=== PATIENT | male | born 1990 | race Two or more races ===

== ENCOUNTER 2021-04-26 14:41 | Observation (INO) | payer OTHER ==
[~2021-04-26] VITALS: Ht 172.7 cm; Wt 73.1 kg
[2021-04-26] MEDS ORDERED: diphenhydrAMINE 50 MG/ML VIAL IVP ONE (16:15)
[2021-04-26] MEDS ORDERED: KETOROLAC 15 MG/ML VIAL. IVP ONE (16:15)
[2021-04-26] MEDS ORDERED: PROCHLORPERAZINE 10 MG/2 ML VIAL. IV ONE (16:15)
[2021-04-26] MEDS ORDERED: IV NORMAL SALINE 1000ML BAG 1,000 ML IV ONE (16:15)
--- NOTE | 2021-04-26 16:16 | PHYS DOC ---
Past Medical History Past Surgical History: No Surgical History Adult General Chief Complaint Chief Complaint: EYE PROBLEMS HPI HPI Patient is a 30 year old male presenting to the emergency department for evaluation of multiple symptoms including headaches and vision loss. Patient re portedly had a chemical splash in his left eye on March 18 and has been following with ophthalmology where his initial vision was 20/25 in his left eye. He was initially seen on March 28. Patient says that he has been getting severe headaches and when he gets a headache his vision gets worse in his left eye but then when his headache goes away his vision gets better. Patient was in the ophthalmology clinic today and being seen by Dr. Oscar Magana and his eye exam was very unremarkable. The tray server felt that this was very unlikely to be an eye problem itself but prescribed Pred forte to see if the steroid would improve his vision. Dr. Magana sent him to the emergency depar tment as his visual acuity was 20/200 in his left eye and feels that there may be another process going on such as optic neuritis or a stroke and told him to come here to get an MRI and see a neurologist. Patient has no history of headaches or migraine disorders. He is in no acute distress with normal vital signs. Review of Systems Review of Systems Constitutional: Denies fever or chills [] Eyes: + change in visual acuity. No redness, or eye pain [] HENT: Denies nasal congestion or sore throat [] Respiratory: Denies cough or shortness of breath [] Cardiovascular: No additional information not addressed in HPI [] GI: Denies abdominal pain, nausea, vomiting, bloody stools or diarrhea [] : Denies dysuria or hematuria [] Musculoskeletal: Denies back pain or joint pain [] Integument: Denies rash or skin lesions [] Neurologic: + headache. No focal weakness or sensory changes [] All other systems were reviewed and found to be within normal limits, except as documented in this note. Current Medications Current Medications Current Medications Medications (Trade) Dose Ordered Sig/Gila Start Time Stop Time Status Last Admin Dose Admin Diphenhydramine HCl (Benadryl) 50 mg 1X ONCE 04/26/21 16:15 04/26/21 16:16 DC 04/26/21 16:58 50 MG Ketorolac Tromethamine (Toradol 15mg Vial) 15 mg 1X ONCE 04/26/21 16:15 04/26/21 16:16 DC 04/26/21 16:58 15 MG Morphine Sulfate (Morphine Sulfate) 4 mg PRN Q2HR PRN 04/26/21 17:00 04/27/21 16:59 Ondansetron HCl (Zofran) 4 mg PRN Q8HRS PRN 04/26/21 17:00 04/27/21 16:59 Prochlorperazine Edisylate (Compazine) 10 mg 1X ONCE 04/26/21 16:15 04/26/21 16:16 DC 04/26/21 16:58 10 MG Sodium Chloride 1,000 ml @ 1,000 mls/hr 1X ONCE 04/26/21 16:15 04/26/21 17:14 DC 04/26/21 16:56 1,000 MLS/HR Sumatriptan Succinate (Imitrex) 50 mg PRN Q12HR PRN 04/26/21 17:00 Allergies Allergies Allergies Coded Allergies Type Severity Reaction Last Updated Verified No Known Drug Allergies 04/26/21 No Physical Exam Physical Exam Constitutional: Well developed, well nourished, no acute distress, non-toxic appearance. [] HENT: Normocephalic, atraumatic, bilateral external ears normal, oropharynx moist, no oral exudates, nose normal. [] Eyes: PERRLA, EOMI, conjunctiva normal, no discharge. [] Neck: Normal range of motion, no tenderness, supple, no stridor. [] Cardiovascular:Heart rate regular rhythm, no murmur [] Lungs & Thorax: Bilateral breath sounds clear to auscultation [] Abdomen: Bowel sounds normal, soft, no tenderness, no masses, no pulsatile masses. [] Skin: Warm, dry, no erythema, no rash. [] Back: No tenderness, no CVA tenderness. [] Extremities: No tenderness, no cyanosis, no clubbing, ROM intact, no edema. [] Neurologic: Alert and oriented X 3, normal motor function, normal sensory function, no focal deficits noted. [] Psychologic: Affect normal, judgement normal, mood normal. [] Current Patient Data Vital Signs Vital Signs Date Time Temp Pulse Resp B/P (MAP) Pulse Ox O2 Delivery O2 Flow Rate FiO2 04/26/21 17:06 90 18 134/66 (88) 96 Room Air 04/26/21 16:02 98.2 98.2 Lab Values Laboratory Tests Test 04/26/21 16:14 White Blood Count 12.1 x10^3/uL (4.0-11.0) H Red Blood Count 4.83 x10^6/uL (4.30-5.70) Hemoglobin 14.4 g/dL (13.0-17.5) Hematocrit 42.6 % (39.0-53.0) Mean Corpuscular Volume 88 fL (79-100) Mean Corpuscular Hemoglobin 30 pg (25-35) Mean Corpuscular Hemoglobin Concent 34 g/dL (31-37) Red Cell Distribution Width 13.4 % (11.5-14.5) Platelet Count 176 x10^3/uL (140-400) Neutrophils (%) (Auto) 73 % (31-73) Lymphocytes (%) (Auto) 17 % (24-48) L Monocytes (%) (Auto) 7 % (0-9) Eosinophils (%) (Auto) 2 % (0-3) Basophils (%) (Auto) 0 % (0-3) Neutrophils # (Auto) 8.8 x10^3/uL (1.8-7.7) H Lymphocytes # (Auto) 2.0 x10^3/uL (1.0-4.8) Monocytes # (Auto) 0.9 x10^3/uL (0.0-1.1) Eosinophils # (Auto) 0.3 x10^3/uL (0.0-0.7) Basophils # (Auto) 0.1 x10^3/uL (0.0-0.2) Sodium Level 139 mmol/L (136-145) Potassium Level 4.2 mmol/L (3.5-5.1) Chloride Level 104 mmol/L (98-107) Carbon Dioxide Level 26 mmol/L (21-32) Anion Gap 9 (6-14) Blood Urea Nitrogen 10 mg/dL (8-26) Creatinine 0.8 mg/dL (0.7-1.3) Estimated GFR (Cockcroft-Gault) 115.1 BUN/Creatinine Ratio 13 (6-20) Glucose Level 149 mg/dL (70-99) H Calcium Level 8.1 mg/dL (8.5-10.1) L Total Bilirubin 0.3 mg/dL (0.2-1.0) Aspartate Amino Transferase (AST) 23 U/L (15-37) Alanine Aminotransferase (ALT) 40 U/L (16-63) Alkaline Phosphatase 54 U/L (46-116) Total Protein 6.9 g/dL (6.4-8.2) Albumin 3.6 g/dL (3.4-5.0) Albumin/Globulin Ratio 1.1 (1.0-1.7) Laboratory Tests 04/26/21 16:14 Laboratory Tests 04/26/21 16:14 EKG EKG [] Radiology/Procedures Radiology/Procedures [] Course & Med Decision Making Course & Med Decision Making Patient with a normal eye exam per ophthalmology. Patient will be admitted for further MRI study and neurology consultation. I will treat him for a migraine headache as this could be an atypical migraine. Patient admitted in stable condition. Dragon Disclaimer Dragon Disclaimer This electronic medical record was generated, in whole or in part, using a voice recognition dictation system. Departure Departure Impression: Primary Impression: Vision changes Additional Impression: Headache Disposition: 09 ADMITTED INPATIENT Condition: STABLE Problem Qualifiers Additional Impression: Headache Headache type: unspecified Headache chronicity pattern: unspecified pattern Intractability: not intractable Qualified Codes: R51.9 - Headache, unspecified RODGER GUTIERREZ DO Apr 26, 2021 16:16
[2021-04-26 16:26] LABS: BASO # 0.1 x10^3/uL (0.0-0.2); BASO % 0 % (0-3); EOS # 0.3 x10^3/uL (0.0-0.7); EOS % 2 % (0-3); HEMATOCRIT 42.6 % (39.0-53.0); HEMOGLOBIN 14.4 g/dL (13.0-17.5); LYMPH % 17 % (24-48); MEAN CORPUSCULAR HEMOGLOBIN 30 pg (25-35); MEAN CORPUSCULAR HGB CONC 34 g/dL (31-37); MEAN CORPUSCULAR VOLUME 88 fL (79-100); MONO # 0.9 x10^3/uL (0.0-1.1); MONO % 7 % (0-9); NEUT # 8.8 x10^3/uL (1.8-7.7); NEUT % 73 % (31-73); PLATELET COUNT 176 x10^3/uL (140-400); RED BLOOD COUNT 4.83 x10^6/uL (4.30-5.70); RED CELL DISTRIBUTION WIDTH 13.4 % (11.5-14.5); WHITE BLOOD COUNT 12.1 x10^3/uL (4.0-11.0)
[2021-04-26 16:47] LABS: CALCIUM 8.1 mg/dL (8.5-10.1); CREATININE 0.8 mg/dL (0.7-1.3); GFR 115.1; POTASSIUM 4.2 mmol/L (3.5-5.1)
[2021-04-26 16:52] LABS: ALBUMIN 3.6 g/dL (3.4-5.0); ALBUMIN/GLOBULIN RATIO 1.1 (1.0-1.7); TOTAL BILIRUBIN 0.3 mg/dL (0.2-1.0); TOTAL PROTEIN 6.9 g/dL (6.4-8.2)
[2021-04-26] MEDS ORDERED: ONDANSETRON PF 4 MG/2 ML VIAL. IVP PRN (17:00)
[2021-04-26] MEDS ORDERED: MORPHINE SULFATE 4 MG/ML INJ. IVP PRN (17:00)
[2021-04-26 20:20] VITALS: BP 139/74
--- NOTE | 2021-04-26 20:20 | NUR ---
The patient, RODGER BUENROSTRO, 30 y/o, M admitted by BENNY ROMAN MD, was given written information regarding hospital policies, unit procedures and contact persons. Valuables were checked and left with him.
--- NOTE | 2021-04-26 21:51 | PDOC1 ---
History and Physical Date of Admission Date of Admission DATE: 04/26/21 TIME: 20:50 Source Source: Chart review, Patient History of Present Illness History of Present Illness Salomon is a 30 year old male sent to ER by optho for vision change - vision loss not related to their exam. He again recount a chemical splash at work the the left eye and vision problems over tiem since then. Recent severe headaches - and vision gets worse in his left eye at that time. Was in ophthalmology clinic today and the eye exam was unable to explain vision change, reported at 20/200 left eye. prednisone had been ordred for poss neuritis. Past Medical History Cardiovascular: No pertinent hx Pulmonary: Asthma Heme/Onc: No pertinent hx Hepatobiliary: No pertinent hx Infectious disease: No pertinent hx ENT: No pertinent hx Endocrine: No pertinent hx Dermatology: No pertinent hx Past Surgical History Past Surgical History: No pertinent history Family History Family History: No Significant Social History Smoke: No ALCOHOL: rare Current Problem List Problem List Problems Medical Problems: (1) Headache Status: Acute (2) Vision changes Status: Acute Current Medications Current Medications Current Medications Ketorolac Tromethamine (Toradol 15mg Vial) 15 mg 1X ONCE IVP Last administered on 04/26/21at 16:58; Start 04/26/21 at 16:15; Stop 04/26/21 at 16:16; Status DC Diphenhydramine HCl (Benadryl) 50 mg 1X ONCE IVP Last administered on 04/26/21at 16:58; Start 04/26/21 at 16:15; Stop 04/26/21 at 16:16; Status DC Prochlorperazine Edisylate (Compazine) 10 mg 1X ONCE IV Last administered on 04/26/21at 16:58; Start 04/26/21 at 16:15; Stop 04/26/21 at 16:16; Status DC Sodium Chloride 1,000 ml @ 1,000 mls/hr 1X ONCE IV Last administered on 04/26/21at 16:56; Start 04/26/21 at 16:15; Stop 04/26/21 at 17:14; Status DC Ondansetron HCl (Zofran) 4 mg PRN Q8HRS PRN IVP NAUSEA/VOMITING; Start 04/26/21 at 17:00; Stop 04/27/21 at 16:59 Morphine Sulfate (Morphine Sulfate) 4 mg PRN Q2HR PRN IVP PAIN; Start 04/26/21 at 17:00; Stop 04/27/21 at 16:59 Sumatriptan Succinate (Imitrex) 50 mg PRN Q12HR PRN PO headache; Start 04/26/21 at 17:00 Allergies Allergies: Coded Allergies: No Known Drug Allergies (Unverified , 04/26/21) ROS General: No: Chills, Night Sweats, Fatigue, Malaise, Appetite, Other PSYCHOLOGICAL ROS: No: Anxiety, Behavioral Disorder, Concentration difficultie, Decreased libido, Depression, Disorientation, Hallucinations, Hostility, Irritablity, Memory difficulties, Mood Swings, Obsessive thoughts, Physical abuse, Sexual abuse, Sleep disturbances, Suicidal ideation, Other Eyes: Yes Blurry vision, Yes Decreased vision; No Double vision, No Dry eyes, No Excessive tearing, No Eye Pain, No Itchy Eyes, No Photophobia, No Uses glasses, No Other HEENT: YES: Heacaches, Visual Changes Respiratory: No: Cough, Hemoptysis, Orthopnea, Pleuritic Pain, Shortness of breath, SOB with excertion, Sputum Changes, Stridor, Tachypnea, Wheezing, Other Cardiovascular: No Chest Pain, No Palpitations, No Orthopnea, No Paroxysmal Noc. Dyspnea, No Edema, No Lt Headedness, No Other Genitourinary: No Dysuria, No Frequency, No Incontinence, No Hematuria, No Retention, No Discharge, No Urgency, No Pain, No Flank Pain, No Other, No , No , No , No , No , No , No Musculoskeletal: No Gait Disturbance, No Joint Pain, No Joint Stiffness, No Joint Swelling, No Muscle Pain, No Muscular Weakness, No Pain In:, No Swelling In:, No Other Neurological: No Behavorial Changes, No Bowel/Bladder ControlChng, No Confusion, No Dizziness, No Gait Disturbance, No Headaches, No Impaired Coord/balance, No Memory Loss, No Numbness/Tingling, No Seizures, No Speech Problems, No Tremors, No Visual Changes, No Weakness, No Other Skin: Yes Dry Skin; No Eczema, No Hair Changes, No Lumps, No Mole Changes, No Mottling, No Nail Changes, No Pruritus, No Rash, No Skin Lesion Changes, No Other, No Acne Physical Exam General: Alert, No acute distress HEENT: PERRLA, EOMI Lungs: Clear to auscultation Heart: S1S2, RRR Abdomen: Soft Extremities: No clubbing, No edema Skin: No significant lesion Neuro: Normal gait, Normal speech, Normal tone Psych/Mental Status: Mental status NL, Mood NL Vitals Vitals Vital Signs Date Time Temp Pulse Resp B/P (MAP) Pulse Ox O2 Delivery O2 Flow Rate FiO2 04/26/21 20:20 97.7 72 18 139/74 (95) 92 Room Air 97.7 Labs Labs Laboratory Tests Test 04/26/21 16:14 White Blood Count 12.1 x10^3/uL (4.0-11.0) Red Blood Count 4.83 x10^6/uL (4.30-5.70) Hemoglobin 14.4 g/dL (13.0-17.5) Hematocrit 42.6 % (39.0-53.0) Mean Corpuscular Volume 88 fL (79-100) Mean Corpuscular Hemoglobin 30 pg (25-35) Mean Corpuscular Hemoglobin Concent 34 g/dL (31-37) Red Cell Distribution Width 13.4 % (11.5-14.5) Platelet Count 176 x10^3/uL (140-400) Neutrophils (%) (Auto) 73 % (31-73) Lymphocytes (%) (Auto) 17 % (24-48) Monocytes (%) (Auto) 7 % (0-9) Eosinophils (%) (Auto) 2 % (0-3) Basophils (%) (Auto) 0 % (0-3) Neutrophils # (Auto) 8.8 x10^3/uL (1.8-7.7) Lymphocytes # (Auto) 2.0 x10^3/uL (1.0-4.8) Monocytes # (Auto) 0.9 x10^3/uL (0.0-1.1) Eosinophils # (Auto) 0.3 x10^3/uL (0.0-0.7) Basophils # (Auto) 0.1 x10^3/uL (0.0-0.2) Sodium Level 139 mmol/L (136-145) Potassium Level 4.2 mmol/L (3.5-5.1) Chloride Level 104 mmol/L (98-107) Carbon Dioxide Level 26 mmol/L (21-32) Anion Gap 9 (6-14) Blood Urea Nitrogen 10 mg/dL (8-26) Creatinine 0.8 mg/dL (0.7-1.3) Estimated GFR (Cockcroft-Gault) 115.1 BUN/Creatinine Ratio 13 (6-20) Glucose Level 149 mg/dL (70-99) Calcium Level 8.1 mg/dL (8.5-10.1) Total Bilirubin 0.3 mg/dL (0.2-1.0) Aspartate Amino Transf (AST/SGOT) 23 U/L (15-37) Alanine Aminotransferase (ALT/SGPT) 40 U/L (16-63) Alkaline Phosphatase 54 U/L (46-116) Total Protein 6.9 g/dL (6.4-8.2) Albumin 3.6 g/dL (3.4-5.0) Albumin/Globulin Ratio 1.1 (1.0-1.7) Laboratory Tests Test 04/26/21 16:14 White Blood Count 12.1 x10^3/uL (4.0-11.0) Red Blood Count 4.83 x10^6/uL (4.30-5.70) Hemoglobin 14.4 g/dL (13.0-17.5) Hematocrit 42.6 % (39.0-53.0) Mean Corpuscular Volume 88 fL (79-100) Mean Corpuscular Hemoglobin 30 pg (25-35) Mean Corpuscular Hemoglobin Concent 34 g/dL (31-37) Red Cell Distribution Width 13.4 % (11.5-14.5) Platelet Count 176 x10^3/uL (140-400) Neutrophils (%) (Auto) 73 % (31-73) Lymphocytes (%) (Auto) 17 % (24-48) Monocytes (%) (Auto) 7 % (0-9) Eosinophils (%) (Auto) 2 % (0-3) Basophils (%) (Auto) 0 % (0-3) Neutrophils # (Auto) 8.8 x10^3/uL (1.8-7.7) Lymphocytes # (Auto) 2.0 x10^3/uL (1.0-4.8) Monocytes # (Auto) 0.9 x10^3/uL (0.0-1.1) Eosinophils # (Auto) 0.3 x10^3/uL (0.0-0.7) Basophils # (Auto) 0.1 x10^3/uL (0.0-0.2) Sodium Level 139 mmol/L (136-145) Potassium Level 4.2 mmol/L (3.5-5.1) Chloride Level 104 mmol/L (98-107) Carbon Dioxide Level 26 mmol/L (21-32) Anion Gap 9 (6-14) Blood Urea Nitrogen 10 mg/dL (8-26) Creatinine 0.8 mg/dL (0.7-1.3) Estimated GFR (Cockcroft-Gault) 115.1 BUN/Creatinine Ratio 13 (6-20) Glucose Level 149 mg/dL (70-99) Calcium Level 8.1 mg/dL (8.5-10.1) Total Bilirubin 0.3 mg/dL (0.2-1.0) Aspartate Amino Transf (AST/SGOT) 23 U/L (15-37) Alanine Aminotransferase (ALT/SGPT) 40 U/L (16-63) Alkaline Phosphatase 54 U/L (46-116) Total Protein 6.9 g/dL (6.4-8.2) Albumin 3.6 g/dL (3.4-5.0) Albumin/Globulin Ratio 1.1 (1.0-1.7) VTE Prophylaxis Ordered VTE Prophylaxis Devices: No VTE Pharmacological Prophylaxi: No Assessment/Plan Assessment/Plan intermittent headache, vision change poss migrane, PRN tryptan consult neuro obs Justifications for Admission Other Justification BENNY ROMAN MD Apr 26, 2021 21:51
[2021-04-26 23:19] VITALS: BP 132/83
[2021-04-27 03:29] VITALS: BP 104/59
[2021-04-27 05:06] LABS: BASO % 0 % (0-3); EOS # 0.4 x10^3/uL (0.0-0.7); EOS % 4 % (0-3); HEMATOCRIT 43.5 % (39.0-53.0); HEMOGLOBIN 14.2 g/dL (13.0-17.5); LYMPH # 2.2 x10^3/uL (1.0-4.8); LYMPH % 20 % (24-48); MEAN CORPUSCULAR HEMOGLOBIN 30 pg (25-35); MEAN CORPUSCULAR HGB CONC 33 g/dL (31-37); MEAN CORPUSCULAR VOLUME 90 fL (79-100); MONO % 9 % (0-9); NEUT # 7.6 x10^3/uL (1.8-7.7); NEUT % 67 % (31-73); PLATELET COUNT 162 x10^3/uL (140-400); RED BLOOD COUNT 4.82 x10^6/uL (4.30-5.70); RED CELL DISTRIBUTION WIDTH 13.6 % (11.5-14.5); WHITE BLOOD COUNT 11.3 x10^3/uL (4.0-11.0)
[2021-04-27 05:24] LABS: CALCIUM 8.5 mg/dL (8.5-10.1); CREATININE 0.9 mg/dL (0.7-1.3); GFR 100.5; POTASSIUM 4.7 mmol/L (3.5-5.1)
[2021-04-27 07:00] VITALS: BP 124/85
--- NOTE | 2021-04-27 08:43 | PDOC2 ---
NEUROLOGY CONSULT Date of Service DOS: DATE: 04/27/21 TIME: 08:33 Reason for Consult Reason for Consult: Headaches, left eye vision loss Referring Physician Referring Physician: Dr. Carter Source Source: Chart review, Patient History of Present Illness History of Present Illness The patient is a 30-year-old right-handed male injured at work on March 17. He works at [employer] and was spraying a solvent on the belts, somehow the solvent sprayed back into his left eye. He had immediate pain. Since then he has had blurred vision and migraine type headaches (he uses the word "migraine") with frontal pain, nausea, photo phonophobia. His mother had migraines. Patient denies any prior history of migraines, stroke, seizure, or head injury. He went to the [facility] emergency room about a month ago with headaches and the blurred vision and was referred to an head sampler, who told him that he needed to go through Worker's Compensation. Patient did go through work comp and was referred to an head sampler, Dr. Magana, who has been following the patient. Patient was told that he had chemical exposure conjunctivitis, patient uses that term. Patient had worse vision yesterday in the left eye, Dr. Magana prescribed some prednisone and sent the patient to the emergency department. This neurologist was not consulted to discuss management, patient was admitted. Past Medical History Cardiovascular: No pertinent hx Past Surgical History Past Surgical History: No pertinent history Family History Family History: DM, Other (Mother has migraines) Social History Social History Single, occasional tobacco, no alcohol, works at [employer] Current Medications Current Medications Current Medications Ketorolac Tromethamine (Toradol 15mg Vial) 15 mg 1X ONCE IVP Last administered on 04/26/21at 16:58; Start 04/26/21 at 16:15; Stop 04/26/21 at 16:16; Status DC Diphenhydramine HCl (Benadryl) 50 mg 1X ONCE IVP Last administered on 04/26/21at 16:58; Start 04/26/21 at 16:15; Stop 04/26/21 at 16:16; Status DC Prochlorperazine Edisylate (Compazine) 10 mg 1X ONCE IV Last administered on 04/26/21at 16:58; Start 04/26/21 at 16:15; Stop 04/26/21 at 16:16; Status DC Sodium Chloride 1,000 ml @ 1,000 mls/hr 1X ONCE IV Last administered on 04/26/21at 16:56; Start 04/26/21 at 16:15; Stop 04/26/21 at 17:14; Status DC Ondansetron HCl (Zofran) 4 mg PRN Q8HRS PRN IVP NAUSEA/VOMITING; Start 04/26/21 at 17:00; Stop 04/27/21 at 16:59 Morphine Sulfate (Morphine Sulfate) 4 mg PRN Q2HR PRN IVP PAIN; Start 04/26/21 at 17:00; Stop 04/27/21 at 16:59 Sumatriptan Succinate (Imitrex) 50 mg PRN Q12HR PRN PO headache Last administered on 04/27/21at 02:43; Start 04/26/21 at 17:00 Allergies Allergies: Coded Allergies: No Known Drug Allergies (Unverified , 04/26/21) ROS Review of System Negative for fever, chills, weight loss, shortness of breath, chest pain, indigestion, hematochezia, melena, and dysuria. Full 14-point review of systems is negative. Physical Exam Physical Examination General: Well-developed, well-nourished, male, in no acute distress HEENT: Normocephalic andatraumatic.Temporal arteriespulsatile and nontender.Fundoscopic exam unremarkable Neck: Supple without bruit, no meningismus Musculoskeletal: Stability:see neurologic. Gait exam:see neurologic. Tone:see neurologic.Strength:see neurologic. Neurological: Mental Status:intact, orientation, memory, attention span/concentration, language, fund of knowledge normal. Cranial Nerves:Pupils equal and reactive to light, extraocular movements areintact, visual martines are full to confrontation. Facial sensation is normal. There is no facial asymmetry. Vestibulo-ocular reflex is intact. Palate elevates and tongue protrudes in midline. All other cranial related problems are negative except as mentioned before.Reflexes:2+ and symmetric with flexor plantar responses. Motor:5/5 strength with normal tone and bulk. Coordination:Finger-nose finger and [id number] testing are normal. Rapid alternating movements and fine finger movements are intact. Gait:Normal, including tandem. Sensory:Normal pinprick, vibration, light touch, proprioception. Vitals VITALS Vital Signs Date Time Temp Pulse Resp B/P (MAP) Pulse Ox O2 Delivery O2 Flow Rate FiO2 04/27/21 03:29 97.8 60 18 104/59 (74) 99 Room Air 97.8 Labs Labs Laboratory Tests Test 04/26/21 16:14 04/27/21 04:45 White Blood Count 12.1 x10^3/uL (4.0-11.0) 11.3 x10^3/uL (4.0-11.0) Red Blood Count 4.83 x10^6/uL (4.30-5.70) 4.82 x10^6/uL (4.30-5.70) Hemoglobin 14.4 g/dL (13.0-17.5) 14.2 g/dL (13.0-17.5) Hematocrit 42.6 % (39.0-53.0) 43.5 % (39.0-53.0) Mean Corpuscular Volume 88 fL (79-100) 90 fL (79-100) Mean Corpuscular Hemoglobin 30 pg (25-35) 30 pg (25-35) Mean Corpuscular Hemoglobin Concent 34 g/dL (31-37) 33 g/dL (31-37) Red Cell Distribution Width 13.4 % (11.5-14.5) 13.6 % (11.5-14.5) Platelet Count 176 x10^3/uL (140-400) 162 x10^3/uL (140-400) Neutrophils (%) (Auto) 73 % (31-73) 67 % (31-73) Lymphocytes (%) (Auto) 17 % (24-48) 20 % (24-48) Monocytes (%) (Auto) 7 % (0-9) 9 % (0-9) Eosinophils (%) (Auto) 2 % (0-3) 4 % (0-3) Basophils (%) (Auto) 0 % (0-3) 0 % (0-3) Neutrophils # (Auto) 8.8 x10^3/uL (1.8-7.7) 7.6 x10^3/uL (1.8-7.7) Lymphocytes # (Auto) 2.0 x10^3/uL (1.0-4.8) 2.2 x10^3/uL (1.0-4.8) Monocytes # (Auto) 0.9 x10^3/uL (0.0-1.1) 1.0 x10^3/uL (0.0-1.1) Eosinophils # (Auto) 0.3 x10^3/uL (0.0-0.7) 0.4 x10^3/uL (0.0-0.7) Basophils # (Auto) 0.1 x10^3/uL (0.0-0.2) 0.0 x10^3/uL (0.0-0.2) Sodium Level 139 mmol/L (136-145) 141 mmol/L (136-145) Potassium Level 4.2 mmol/L (3.5-5.1) 4.7 mmol/L (3.5-5.1) Chloride Level 104 mmol/L (98-107) 106 mmol/L (98-107) Carbon Dioxide Level 26 mmol/L (21-32) 26 mmol/L (21-32) Anion Gap 9 (6-14) 9 (6-14) Blood Urea Nitrogen 10 mg/dL (8-26) 14 mg/dL (8-26) Creatinine 0.8 mg/dL (0.7-1.3) 0.9 mg/dL (0.7-1.3) Estimated GFR (Cockcroft-Gault) 115.1 100.5 BUN/Creatinine Ratio 13 (6-20) Glucose Level 149 mg/dL (70-99) 93 mg/dL (70-99) Calcium Level 8.1 mg/dL (8.5-10.1) 8.5 mg/dL (8.5-10.1) Total Bilirubin 0.3 mg/dL (0.2-1.0) Aspartate Amino Transf (AST/SGOT) 23 U/L (15-37) Alanine Aminotransferase (ALT/SGPT) 40 U/L (16-63) Alkaline Phosphatase 54 U/L (46-116) Total Protein 6.9 g/dL (6.4-8.2) Albumin 3.6 g/dL (3.4-5.0) Albumin/Globulin Ratio 1.1 (1.0-1.7) Laboratory Tests Test 04/26/21 16:14 1/14/22 04:45 White Blood Count 12.1 x10^3/uL (4.0-11.0) 11.3 x10^3/uL (4.0-11.0) Red Blood Count 4.83 x10^6/uL (4.30-5.70) 4.82 x10^6/uL (4.30-5.70) Hemoglobin 14.4 g/dL (13.0-17.5) 14.2 g/dL (13.0-17.5) Hematocrit 42.6 % (39.0-53.0) 43.5 % (39.0-53.0) Mean Corpuscular Volume 88 fL (79-100) 90 fL (79-100) Mean Corpuscular Hemoglobin 30 pg (25-35) 30 pg (25-35) Mean Corpuscular Hemoglobin Concent 34 g/dL (31-37) 33 g/dL (31-37) Red Cell Distribution Width 13.4 % (11.5-14.5) 13.6 % (11.5-14.5) Platelet Count 176 x10^3/uL (140-400) 162 x10^3/uL (140-400) Neutrophils (%) (Auto) 73 % (31-73) 67 % (31-73) Lymphocytes (%) (Auto) 17 % (24-48) 20 % (24-48) Monocytes (%) (Auto) 7 % (0-9) 9 % (0-9) Eosinophils (%) (Auto) 2 % (0-3) 4 % (0-3) Basophils (%) (Auto) 0 % (0-3) 0 % (0-3) Neutrophils # (Auto) 8.8 x10^3/uL (1.8-7.7) 7.6 x10^3/uL (1.8-7.7) Lymphocytes # (Auto) 2.0 x10^3/uL (1.0-4.8) 2.2 x10^3/uL (1.0-4.8) Monocytes # (Auto) 0.9 x10^3/uL (0.0-1.1) 1.0 x10^3/uL (0.0-1.1) Eosinophils # (Auto) 0.3 x10^3/uL (0.0-0.7) 0.4 x10^3/uL (0.0-0.7) Basophils # (Auto) 0.1 x10^3/uL (0.0-0.2) 0.0 x10^3/uL (0.0-0.2) Sodium Level 139 mmol/L (136-145) 141 mmol/L (136-145) Potassium Level 4.2 mmol/L (3.5-5.1) 4.7 mmol/L (3.5-5.1) Chloride Level 104 mmol/L (98-107) 106 mmol/L (98-107) Carbon Dioxide Level 26 mmol/L (21-32) 26 mmol/L (21-32) Anion Gap 9 (6-14) 9 (6-14) Blood Urea Nitrogen 10 mg/dL (8-26) 14 mg/dL (8-26) Creatinine 0.8 mg/dL (0.7-1.3) 0.9 mg/dL (0.7-1.3) Estimated GFR (Cockcroft-Gault) 115.1 100.5 BUN/Creatinine Ratio 13 (6-20) Glucose Level 149 mg/dL (70-99) 93 mg/dL (70-99) Calcium Level 8.1 mg/dL (8.5-10.1) 8.5 mg/dL (8.5-10.1) Total Bilirubin 0.3 mg/dL (0.2-1.0) Aspartate Amino Transf (AST/SGOT) 23 U/L (15-37) Alanine Aminotransferase (ALT/SGPT) 40 U/L (16-63) Alkaline Phosphatase 54 U/L (46-116) Total Protein 6.9 g/dL (6.4-8.2) Albumin 3.6 g/dL (3.4-5.0) Albumin/Globulin Ratio 1.1 (1.0-1.7) Assessment/Plan Assessment/Plan Impression: Migraine headaches, possibly precipitated by eye injury, no evidence of any current injury. Recommendations: MRI of the brain with and without contrast Start metoprolol 25 mg daily, after 4 days total, increase to 50 mg daily Increase sumatriptan hand to 100 mg twice a day as needed I discussed side effects of the medications Home after the MRI Follow-up with me in 4-6 weeks. Continue to follow-up with ophthalmology Thank you for letting me help with the patient's care. MARTHA JAMES MD Apr 27, 2021 08:43
[2021-04-27] MEDS ORDERED: METOPROLOL SUCC 24HR ER 25 MG TAB.ER.24H. PO SCH (09:00)
[2021-04-27 11:00] VITALS: BP 118/73
--- NOTE | 2021-04-27 11:43 | NUR ---
SW following. Discussed with RN, pt from home, room air, regular diet. Neuro following. MRI ordered. Per RN, pt can discharge after MRI. RN advised no SW needs at this time. SW will continue to follow.
[2021-04-27] MEDS ORDERED: GADOTERATE 7.5 MMOL/15ML VIAL. IVP ONE (12:00)
[2021-04-27] MEDS ORDERED: METO-239 PO ×2 (12:41)
[2021-04-27] MEDS ORDERED: SUMA100T3 PO (12:41)
--- NOTE | 2021-04-27 13:26 | RAD ---
EXAM: Brain MRI with and without contrast. HISTORY: Left-sided vision loss. TECHNIQUE: Multiplanar, multisequence magnetic resonance imaging of the brain was performed prior to and following the administration of intravenous contrast. COMPARISON: None. FINDINGS: There is no restricted diffusion to suggest acute or subacute infarction. There is no susce ptibility effect to suggest hemorrhage. There is no mass effect or midline shift. There is no hydroce phalus. There is no suspicious white matter lesion. The orbits are unremarkable. There is mild paranasal sinus because of thickening and there are small left greater than right maxillary sinus mucous retention cysts. The mastoid air cells are clear. There are normal flow voids within the cerebral vessels. There is no suspicious calvarial lesion. The re are incidental low-lying cerebellar tonsils, without significant ectopia. There is no suspicious e nhancing lesion. IMPRESSION: No acute intracranial finding. Electronically signed by: Joanie Tarango MD (04/27/2021 1:23 PM) [id number]
--- NOTE | 2021-04-27 14:40 | NUR ---
Discharge Note: RODGER BUENROSTRO [address] [place] [address] Discharge instructions and discharge home medications reviewed with Patient and a copy given. All questions have been answered and understanding verbalized. The following instructions and handouts were given: f/u with PCP within two weeks. F/U with Dr. Giron within 4-6 weeks. Discontinued lines and drains: Peripheral IV intact. Patient discharged to Home or Self Care with Self (By [facility]) via [facility].
--- NOTE | 2021-04-28 15:51 | PDOC3 ---
[facility]-Discharge Summary Date of Admission: Date of Admission: Apr 26, 2021 Date of Discharge: Date of Discharge: Apr 27, 2021 Admission Diagnosis: Problems: (1) Headache (2) Vision changes Consults: Consults: Neuro Hospital Course: Hospital Course: Salomon is a 30 year old male sent to ER by optho for vision change - vision loss not related to their exam. He again recount a chemical splash at work the the left eye and vision problems over tiem since then. Recent severe headaches - and vision gets worse in his left eye at that time. Was in ophthalmology clinic today and the eye exam was unable to explain vision change, reported at 20/200 left eye. prednisone had been ordred for poss neuritis. 04/27 Patient seen eval at bedside. Seen by Neurology, MRI and then f/u with them outpatient. Patient is agreeable to this plan. MRI unremarkable. Greater than 30min spent on d/c. 17min acp. Disposition: Disposition/Orders: D/C to Home Activity: Activity: Resume previous activity Diet: Diet: Regular Medications: Home Meds Active Scripts Sumatriptan Succinate (IMITREX) 100 Mg Tablet, 100 MG PO BID PRN for MIGRAINE HEADACHE for 60 Days, #60 TAB Prov:ARLENE TIRADO MD 04/27/21 Metoprolol Succinate (METOPROLOL SUCCINATE ( XL )) 25 Mg Tab.er.24h, 2 TAB PO DAILY for ANGEL, #90 TAB 0 Refills Do not start until 05/01/21 Prov:ARLENE TIRADO MD 04/27/21 Metoprolol Succinate (METOPROLOL SUCCINATE ( XL )) 25 Mg Tab.er.24h, 25 MG PO DAILY for angel for 4 Days, #4 TAB.SR Prov:ARLENE TIRADO MD 04/27/21 Scheduled Metoprolol Succinate (Metoprolol Succinate ( Xl )), 25 MG PO DAILY Metoprolol Succinate (Metoprolol Succinate ( Xl )), 2 TAB PO DAILY Scheduled PRN Sumatriptan Succinate (Imitrex), 100 MG PO BID PRN for MIGRAINE HEADACHE Justicifation of Admission Dx: Justifications for Admission: Justification of Admission Dx: Yes (vision changes, ANGEL) ARLENE TIRADO MD Apr 28, 2021 15:51
== END 2021-04-27 14:40 | disposition home or self-care (01) ==
LOC: ER 14:41 → ED HOLD 16:45 → 5 SOUTH 16:59
PROVIDERS: ADMIT Internal Medicine; ATTEND Internal Medicine
DX: R51.9 Headache, unspecified (principal); H53.9 Unspecified visual disturbance; J45.909 Unspecified asthma, uncomplicated
CPT/HCPCS: 36415; 70553; 80048; 80053; 85025; 96361; 96374; 96375; 99284; A9575; G0378; J0780; J1200; J1885; J7030; G0379